=== PATIENT | male | born 1950 | race Caucasian/White ===

== ENCOUNTER 2022-01-30 11:27 | Emergency (ER) | payer OTHER ==
[2022-01-30] MEDS ORDERED: BEBTELOVIMAB (EUA) 175 MG/2 ML VIAL IVPUSH ONE (11:39)
[2022-01-30 11:43] VITALS: BMI 24.0
[2022-01-30 13:44] VITALS: BP 129/74; PULSE 92; TEMP 98.2
== END 2022-01-30 13:43 | disposition home or self-care (01) ==
LOC: JCOVINFU 11:27
DX: U07.1 COVID-19 (principal)
CPT/HCPCS: 99284-25; M0222; Q0222